=== PATIENT | female | born 1975 | race African-American/Black ===

== ENCOUNTER 2017-08-05 18:10 | Emergency (ER) | payer BC ==
[~2017-08-05] VITALS: Ht 162.6 cm; Wt 72.7 kg
[~2017-08-05 18:10] MED LIST: ATENOLOL100 M1 PO; HYDROCHLOROTHIA50 MG PO; KLONOPIN0.5 M1 PO; SERTRALINE HCL50 MG PO; ULTRAM50 MG PO
[2017-08-05] MEDS ORDERED: PERCOCET 5/31 TABLET PO (20:43)
[2017-08-05 21:36] VITALS: BP 144/89
== END 2017-08-05 21:37 | disposition home or self-care (01) ==
LOC: EXP 18:10 → EME 18:10 → EXP 21:37
DX: S83.91XA Sprain of unspecified site of right knee, initial encounter (principal); X50.9XXA Other and unspecified overexertion or strenuous movements or postures, initial encounter; Y93.89 Activity, other specified; Z88.5 Allergy status to narcotic agent
CPT/HCPCS: 99281; 99283